=== PATIENT | male | born 1995 | race Caucasian/White ===

== ENCOUNTER 2017-06-03 08:22 | Emergency (ER) | payer SELFPAY ==
[2017-06-03 10:43] LABS: APPEARANCE,URINE CLEAR; BILIRUBIN,URINE NEGATIVE (NEGATIVE); GLUCOSE, URINE NEGATIVE (NEGATIVE); KETONES,URINE NEGATIVE (NEGATIVE); LEUKOCYTE ESTERASE,URINE NEGATIVE (NEGATIVE); NITRITE,URINE POSITIVE (NEGATIVE); PROTEIN,URINE NEGATIVE (NEGATIVE); URINE SPECIFIC GRAVITY 1.005
--- NOTE | 2017-06-03 11:00 | ER Document Report ---
ED GI/ - General Chief Complaint: Pain With Urination Stated Complaint: PAINFUL URINATION Time Seen by Provider: 06/03/17 08:46 Mode of Arrival: Ambulatory Information source: Patient Notes: Patient is a 21-year-old male who presents to the ER today for 3 days of burning with urination and frequency, hesitancy. Patient denies rash, fever, chills. Patient denies any abdominal pain or low back pain. He denies any concern for STDs. He denies any penile discharge. He denies that he seen any blood in his urine. TRAVEL OUTSIDE OF THE [place] IN LAST 30 DAYS: No - Related Data Allergies/Adverse Reactions: Penicillins Allergy (Verified 06/03/17 08:30) Past Medical History - General Information source: Patient - Social History Smoking Status: Unknown if Ever Smoked Patient has suicidal ideation: No Patient has homicidal ideation: No Renal/ Medical History: Denies: Hx Peritoneal Dialysis Surgical Hx: Negative Review of Systems - Review of Systems Constitutional: No symptoms reported EENT: No symptoms reported Cardiovascular: No symptoms reported Respiratory: No symptoms reported Gastrointestinal: No symptoms reported Genitourinary: See HPI Male Genitourinary: See HPI Musculoskeletal: No symptoms reported Skin: No symptoms reported Hematologic/Lymphatic: No symptoms reported Neurological/Psychological: No symptoms reported Physical Exam - Vital signs Vitals: Temp Pulse Resp BP Pulse Ox 98.2 F 117 H 17 143/90 H 96 06/03/17 08:24 06/03/17 08:24 06/03/17 08:24 06/03/17 08:24 06/03/17 08:24 - Notes Notes: PHYSICAL EXAMINATION: GENERAL: Well-appearing, obese, and in no acute distress. HEAD: Atraumatic, normocephalic. EYES: Pupils equal round and reactive to light, extraocular movements intact, sclera anicteric, conjunctiva are normal. NECK: Normal range of motion, supple without lymphadenopathy LUNGS: CTAB and equal. No wheezes rales or rhonchi. HEART: Regular rate and rhythm without murmurs ABDOMEN: Soft, no tenderness. No guarding, no rebound BACK: no vertebral tenderness, normal ROM GI/: no CVA tenderness EXTREMITIES: Normal range of motion, no pitting edema. No cyanosis. NEUROLOGICAL: Cranial nerves grossly intact. Normal sensory/motor exams. PSYCH: Normal mood, normal affect. SKIN: Warm, Dry, normal turgor, no rashes or lesions noted Course - Re-evaluation Re-evalutation: 06/03/17 13:47 urinalysis is positive for nitrites. Patient placed on Keflex. Gonorrhea and chlamydia negative today. - Vital Signs Vital signs: Temp Pulse Resp BP Pulse Ox 98.1 F 100 18 140/99 H 98 06/03/17 11:31 06/03/17 11:31 06/03/17 11:31 06/03/17 11:31 06/03/17 11:31 - Laboratory Laboratory results interpreted by me: 06/03/17 10:23 Urine Nitrite POSITIVE H Urine Urobilinogen 2.0 H Discharge - Discharge Clinical Impression: UTI (urinary tract infection) Qualifiers: Urinary tract infection type: site unspecified Hematuria presence: without hematuria Qualified Code(s): N39.0 - Urinary tract infection, site not specified Condition: Stable Disposition: HOME, SELF-CARE Instructions: Urinary Tract Infection ([facility]) Additional Instructions: Drink plenty of water! return immediately for any new or worsening symptoms. Follow up with primary care provider, call tomorrow to make followup appointment. Prescriptions: Cephalexin Monohydrate [Keflex 500 mg Capsule] 500 mg PO BID 7 Days #14 capsule Forms: Return to Work
[2017-06-03 11:32] VITALS: BP 140/99
[2017-06-03 12:03] LABS: CHLAM PCR NOT DETECTED (NOT DETECT)
== END 2017-06-03 11:32 | disposition home or self-care (01) ==
LOC: ER 08:22
DX: N39.0 Urinary tract infection, site not specified (principal); R30.9 Painful micturition, unspecified; R35.0 Frequency of micturition; R39.15 Urgency of urination
CPT/HCPCS: 81001; 87491; 87591; 99283

== ENCOUNTER 2017-06-24 08:14 | Emergency (ER) | payer SELFPAY ==
[2017-06-24 09:32] LABS: APPEARANCE,URINE CLEAR; BILIRUBIN,URINE NEGATIVE (NEGATIVE); GLUCOSE, URINE NEGATIVE (NEGATIVE); KETONES,URINE NEGATIVE (NEGATIVE); LEUKOCYTE ESTERASE,URINE NEGATIVE (NEGATIVE); NITRITE,URINE NEGATIVE (NEGATIVE); PROTEIN,URINE NEGATIVE (NEGATIVE); URINE SPECIFIC GRAVITY 1.021; UROBILINOGEN,URINE NEGATIVE mg/dL (<2.0)
[2017-06-24 09:48] LABS: ANION GAP 14 (5-19); BLOOD UREA NITROGEN 22 mg/dL (7-20); CALCIUM 9.8 mg/dL (8.4-10.2); CARBON DIOXIDE 28 mmol/L (22-30); CHLORIDE 102 mmol/L (98-107); CREATININE RESULT 0.87 mg/dL (0.52-1.25); GLUCOSE 95 mg/dL (75-110); POTASSIUM 4.5 mmol/L (3.6-5.0); SODIUM 143.6 mmol/L (137-145)
--- NOTE | 2017-06-24 10:06 | ER Document Report ---
ED GI/ - General Chief Complaint: Pain With Urination Stated Complaint: POSSIBLE UTI Time Seen by Provider: 06/24/17 08:35 Mode of Arrival: Ambulatory Information source: Patient, Relative Notes: Patient is a 22-year-old male comes emergency room coming by his mother. Patient states that he was seen here on June 03 for same presentation was sent home got a little better with antibiotics but then the discomfort returned. States he has discomfort with urination. Also states that it comes and goes. Patient denies being sexually active. Primary complaint though is dysuria. Patient has no other medical problems according to him and his mother. Also denies any fevers. No history of diabetes for him however his father whom he does not see it has a long history of diabetes at a young age as does his grandfather of his father..States thsat at times he has pain on trying to urinate and other times seems like he can not urinate at all. TRAVEL OUTSIDE OF THE [place] IN LAST 30 DAYS: No - HPI Patient complains to provider of: Dysuria, Urinary retention Onset: Other - 3 weeks Timing/Duration: Sudden, Intermittent, Waxing and waning Quality of pain: Burning, Cramping, Sharp Severity at maximum: Moderate Severity in ED: Moderate Pain Level: 2 Context: denies: Bad food, Lifting, Out of the country travel, , Recent trauma, Other Location: Suprapubic. No: Chest pain, Epigastric, LUQ, LLQ, RUQ, RLQ, Left flank, Right flank, Low back, Pelvis, Left testicle, Right testicle, Rectal, Other Sexual history: Inactive Associated symptoms: Urinary hesitancy, Urinary frequency, Urinary retention, Urinary urgency Exacerbated by: Denies Relieved by: Denies Similar symptoms previously: Yes Recently seen / treated by doctor: Yes - Related Data Allergies/Adverse Reactions: Penicillins Allergy (Verified 06/24/17 08:16) Past Medical History - General Information source: Patient, Relative - Social History Smoking Status: Current Every Day Smoker Cigarette use (# per day): Yes - 1ppd Chew tobacco use (# tins/day): No Smoking Education Provided: Yes Frequency of alcohol use: None Drug Abuse: None Lives with: Family Family History: Hypertension, Other - DM Patient has suicidal ideation: No Patient has homicidal ideation: No - Past Medical History Cardiac Medical History: Reports: None Denies: Hx Atrial Fibrillation, Hx Congestive Heart Failure, Hx Coronary Artery Disease, Hx DVT, Hx Heart Attack, Hx Hypercholesterolemia, Hx Hypertension, Hx Peripheral Vascular Disease, Hx Pulmonary Embolism, Hx Heart Murmur, Other Pulmonary Medical History: Reports: None EENT Medical History: Reports: None Neurological Medical History: Reports: None Endocrine Medical History: Reports: None Renal/ Medical History: Reports: None. Denies: Hx Peritoneal Dialysis Malignancy Medical History: Reports None GI Medical History: Reports: None. Denies: Hx Cirrhosis, Hx Crohn's Disease, Hx Diverticulitis, Hx Gastritis, Hx Gastroesophageal Reflux Disease, Hx Hepatitis, Hx Hiatal Hernia, Hx Irritable Bowel, Hx Liver Failure, Hx Pancreatitis, Hx Ulcer, Hx Ulcerative Colitis, Hx Colonoscopy, Hx Endoscopic Retrograde Cholangio, Hx Endoscopy, Other Skin Medical History: Reports None Psychiatric Medical History: Reports: None Traumatic Medical History: Reports: None Infectious Medical History: Reports: None Past Surgical History: Reports: None - Immunizations Immunizations up to date: Yes Review of Systems - Review of Systems Constitutional: No symptoms reported EENT: No symptoms reported Cardiovascular: No symptoms reported Respiratory: No symptoms reported Gastrointestinal: No symptoms reported Genitourinary: Burning, Dysuria, Frequency, Urgency, Retention. denies: No symptoms reported, See HPI, Discharge, Flank pain, Hematuria, Incontinence, Pain , Other Male Genitourinary: denies: No symptoms reported, See HPI, Erectile dysfunction , Testicular pain, Penile discharge, Other Musculoskeletal: No symptoms reported Skin: No symptoms reported Hematologic/Lymphatic: denies: No symptoms reported Neurological/Psychological: No symptoms reported -: Yes All other systems reviewed and negative Physical Exam - Vital signs Vitals: Temp Pulse Resp BP Pulse Ox 98.4 F 100 16 147/73 H 98 06/24/17 08:16 06/24/17 08:16 06/24/17 08:16 06/24/17 08:16 06/24/17 08:16 - General General appearance: Appears well - Respiratory Respiratory status: No respiratory distress Breath sounds: Normal. No: Decreased air movement, Nonproductive cough, Productive cough, Rales, Rhonchi, Stridor, Wheezing, Other - Cardiovascular Rhythm: Regular Heart sounds: Normal auscultation Murmur: No - Abdominal Inspection: Normal Distension: No distension Bowel sounds: Normal Tenderness: Nontender Organomegaly: No organomegaly - Genitourinary Inspection: Normal. No: Blood at meatus, Penile discharge, Other Tenderness: Nontender Cremasteric reflex: Normal Scrotum: Normal Notes: Exam shows a morbidly obese white male . Further examination of the male genitalia shows no acute findings. No testicular pain no scrotal swelling. No discharge from penis. Cremasteric reflex normal. no hernia. - Back Back: Normal, Nontender. No: Tender, Deformity/step-off, CVA tenderness, Vertebra tenderness, Scars, Scoliosis, Wounds, Other - Neurological Neuro grossly intact: Yes Cognition: Normal Orientation: AAOx4 [place] Coma Scale Eye Opening: Spontaneous [place] Coma Scale Verbal: Oriented [place] Coma Scale Motor: Obeys Commands [place] Coma Scale Total: 15 Speech: Normal Course - Vital Signs Vital signs: Temp Pulse Resp BP Pulse Ox 97.5 F 86 16 133/95 H 96 06/24/17 10:42 06/24/17 10:42 06/24/17 10:42 06/24/17 10:42 06/24/17 10:42 - Laboratory Result Diagrams: 06/24/17 09:17 Laboratory results interpreted by me: 06/24/17 09:17 BUN 22 H - Transfer of Care Notes: 06/24/17 22:51 No pain or tenderness noted on exam to testicles and or scrotal area. Epididymis nontender as well. No US needed. Question uretheral spasms vs mild stricture. Will refer to urologist. Mother knows which one she is going to see. Discharge - Discharge Clinical Impression: Cystitis, Urethral spasm Condition: Good Disposition: HOME, SELF-CARE Instructions: Urethritis ([facility]) Additional Instructions: Even though your urine is clearing to treat you for a cystitis/urethritis kind of presentation. We will treat with an antibiotic and also a antispasmodic. I am also encourage you to contact a urologist for follow-up. This may be something that requires more intervention. As we discussed could be spasms that are being caused and the Pyridium which on put you on we will stop the spasms. If he should spike a fever or have any other discomforts then increased return to ER for recheck. Again I highly recommend a urology consult. You may contact [facility]. Which is [facility] Prescriptions: Phenazopyridine HCl [Pyridium 200 mg Tablet] 200 mg PO TID #6 tablet Sulfamethoxazole/Trimethoprim [Bactrim Ds Tablet] 1 each PO BID #14 tablet Forms: Elevated Blood Pressure Referrals: JOSE VALERIO II, MD [[facility]] - Follow up as needed
[2017-06-24 10:44] VITALS: BP 133/95
== END 2017-06-24 10:43 | disposition home or self-care (01) ==
LOC: ER 08:14
DX: N30.90 Cystitis, unspecified without hematuria (principal); N35.9 Urethral stricture, unspecified; R30.9 Painful micturition, unspecified; F17.210 Nicotine dependence, cigarettes, uncomplicated
CPT/HCPCS: 36415; 80048; 81001; 87086; 99283

== ENCOUNTER 2020-08-13 23:15 | Emergency (ER) | payer SELFPAY ==
[2020-08-14] MEDS ORDERED: NORMAL SALINE 1000 ML 1,000 ML IV ONE (02:01)
[2020-08-14] MEDS ORDERED: CEFTRIAXONE 1 GM/D5W RTU 1 GM/50 ML RTUPB IV ONE (02:01)
--- NOTE | 2020-08-14 02:01 | ER Document Report ---
ED General - General Chief Complaint: RLE pain and SOB Stated Complaint: RIGHT LEG PAIN,BODY ACHES Time Seen by Provider: 08/14/20 01:24 Primary Care Provider: [facility] [Provider Group] - Follow up as needed [facility] [Provider Group] - Follow up as needed [facility] [Provider Group] - Follow up as needed [facility] [Provider Group] - Follow up as needed Mode of Arrival: Medic Information source: Patient Notes: 25-year-old male presented to ED for complaint of pain to the right lower leg and foot which is red and swollen body aches short of breath afebrile. He is 214 kg and 6 foot 4. He states he has not been to the doctor probably in at least a year. He is very short of breath when trying to get up and down out of the bed. EMS stated that there rapid Covid was negative but he is symptomatic for Covid. We will get x-ray Covid flu blood work and x-ray of the chest and foot. He does look like he has cellulitis to the right foot. He states he did accidentally dropped a knife sticking his toe about a week ago. That does not look infected but he does look like he has cellulitis to the foot. Constitutional: Negative for fever. HENT: Negative for sore throat. Eyes: Negative for visual changes. Cardiovascular: Negative for chest pain. Respiratory: Patient complains of shortness of breath body aches states he has a nonproductive cough has not had any fevers. Gastrointestinal: Negative for abdominal pain, vomiting or diarrhea. Genitourinary: Negative for dysuria. Musculoskeletal: Pain swelling and redness to the right foot and leg. Skin: Eczematous swollen right foot and leg with a very small healing wound to the right fifth toe it was from a couple days ago. There is no abscess or purulent drainage to the site. Neurological: Negative for headaches, weakness or numbness. 10 point ROS negative except as marked above and in HPI. Patient is severely morbidly obese at 214 kg and 6 foot 4 HEAD: Normal with no signs of head trauma. EYES: PERRLA, EOMI, conjunctiva normal, no discharge. EARS: Hearing grossly intact. NOSE: Normal. THROAT: Oropharynx is normal. NECK: Normal range of motion, no tenderness, supple, no lymphadenopathy, No adenopathy, no JVD. CHEST: Clear breath sounds bilaterally. No wheezes, rales, or rhonchi. CARDIAC: Pulse was tachycardic when he first came in he was treated with IV fluids and his pulse came down to 110. It was 138 to begin with. He stated he felt much better and more steady on his feet VASCULAR: Mild erythema and edema to the right lower leg and foot from cellulitis. Peripheral pulses normal and equal in all extremities. ABDOMEN: Normal and soft with no tenderness, no masses or pulsatile masses. GASTROINTESTINAL: Bowel sounds normal GENITOURINARY: Normal, No tenderness LYMPATHTIC: No lymphadenopathy noted. MUSCULOSKELETAL: Good range of motion of all major joints. Extremities without clubbing, cyanosis or edema. NEUROLOGICAL: Alert and oriented x 3. No focal sensory or strength deficits. Speech normal. Follows commands appropriately. PSYCHIATRIC: Normal Affect, judgement and mood. SKIN: Erythematous warm area to the lower right leg and foot. He does have a small wound to the right fifth toe that he states was from several days ago when he dropped a knife on his foot. There is no purulent drainage to this toe. TRAVEL OUTSIDE OF THE [place] IN LAST 30 DAYS: No - HPI Onset: Yesterday Onset/Duration: Gradual Quality of pain: Achy - Body aches painful right leg Severity: Moderate Pain Level: 4 Associated symptoms: Body/muscle aches, Nonproductive cough, Shortness of breath, Other - And swelling right foot and leg Exacerbated by: Movement, Walking Relieved by: Denies Similar symptoms previously: No Recently seen / treated by doctor: No - Related Data Allergies/Adverse Reactions: Penicillins Allergy (Verified 06/24/17 08:16) Past Medical History - General Information source: Patient - Social History Smoking Status: Current Every Day Smoker Cigarette use (# per day): Yes - 5 cigarillos a week Smoking Education Provided: Yes - 3 minutes Frequency of alcohol use: None Drug Abuse: None Lives with: Family Family History: Hypertension, Other - Past Medical History Cardiac Medical History: Reports: None Pulmonary Medical History: Reports: None EENT Medical History: Reports: None Neurological Medical History: Reports: None Endocrine Medical History: Reports: None Renal/ Medical History: Reports: None. Denies: Hx Peritoneal Dialysis Malignancy Medical History: Reports None GI Medical History: Reports: None Musculoskeletal Medical History: Reports None Skin Medical History: Reports Hx Cellulitis Psychiatric Medical History: Reports: None Traumatic Medical History: Reports: None Infectious Medical History: Reports: None - Immunizations Immunizations up to date: Yes Hx Diphtheria, Pertussis, Tetanus Vaccination: Yes - 08/14/2020 Physical Exam - Vital signs Vitals: Temp Pulse Resp BP Pulse Ox 99.2 F 138 H 22 H 134/90 H 100 08/13/20 23:28 08/13/20 23:28 08/13/20 23:28 08/13/20 23:28 08/13/20 23:28 Course - Re-evaluation Re-evalutation: 08/14/20 09:06 X-ray results discussed with Dr. Ramires as well as exam. He did recommend treatment with Rocephin IV and discharged home with Keflex. Patient was instructed to follow-up with primary care and was given a list of several offices to follow-up with. He was instructed please to ensure that he cleaned the foot 3 times a day with soap water and please follow-up with For any increase in symptoms. Patient did verbalize understanding and agreement with this treatment plan. - Vital Signs Vital signs: Temp Pulse Resp BP Pulse Ox 100.7 F H 122 H 18 133/74 H 99 08/14/20 04:36 08/14/20 04:36 08/14/20 04:36 08/14/20 04:36 08/14/20 04:36 - Laboratory Results Result Diagrams: 08/14/20 02:45 08/14/20 02:45 Laboratory Results Interpreted: 08/14/20 08/14/20 02:45 02:45 WBC 16.0 H Hgb 12.8 L Lymph % (Auto) 5.5 L Absolute Neuts (auto) 13.8 H Seg Neutrophils % 86.2 H Chloride 108 H BUN 22 H Glucose 116 H Critical Laboratory Results Reviewed: No Critical Results - Radiology Results Critical Radiology Results Reviewed: No Critical Results Discharge - Discharge Clinical Impression: Cellulitis of right foot, Person under investigation for COVID-19 Condition: Stable Disposition: HOME, SELF-CARE Instructions: COVID-19 Guidance for Persons Under Investigation Additional Instructions: CELLULITIS: You have an infection of your skin and underlying soft tissues called cellulitis. This is due to bacteria, which can enter through any break in the skin, or even through an irritated hair follicle. Untreated, cellulitis will usually worsen. Antibiotics are required. Usually, warm packs or warm soaks, and elevation of the infected area are recommended. You should start getting better within 24 to 36 hours. Most infections respond quickly to the right medication. Follow-up care is important, however, to check for abscess (boil) formation, unsuspected foreign body, or resistant infection. If you develop fever, chills, or if the area of infection is becoming rapidly more swollen or painful, call the doctor at once. Rocephin You have been given an injection of an antibiotic called Rocephin (ceftriaxone). Sometimes the injection must be combined with antibiotic pills. For some infections, such as an uncomplicated ear infection, Rocephin provides all the antibiotic that's needed. The antibiotic will be in your body for about two days. For serious infections, we usually repeat doses of Rocephin daily. Side effects are very unusual following a shot. Women may develop vaginal yeast infections, and babies can get yeast (thrush) in the mouth following the use of antibiotics. Contact your physician if you have symptoms with this medication. Allergy to this antibiotic can result in hives, wheezing, faintness, or itching. If symptoms of allergy occur, call the doctor at once. Cephalexin The antibiotic you've been prescribed is a member of the cephalosporin class. This type of antibiotic covers a wide variety of infections, including those of the skin, lungs, and urinary tract. It's useful for staph infections. This antibiotic is slightly similar to the penicillin family. In rare cases, a person who is allergic to penicillin will also be allergic to this medication. If you have had a severe allergic reaction to penicillin, and have not taken this antibiotic since that time, notify your doctor. Antibiotics which cover many germs ("broad spectrum" antibiotics) are more likely to cause diarrhea or "yeast" infections. Women prone to vaginal yeast problems may suffer an attack after taking this antibiotic. In infants, oral thrush (white spots "stuck" on the cheek) or yeast diaper rash may result. See your doctor if these problems occur. Call at once if you develop itching, hives, shortness of breath, or lightheadedness. Intravenous (IV) Fluids As part of your care today, you received intravenous (IV) fluids. IV f luids are administered to patients who are dehydrated or to those who have certain chemical (electrolyte) abnormalities that need correcting. Patient was provided with discharge information including: As a person under investigation for Covid 19, the [place] department of Health and Human Services, division of public health advises you to adhere to the following guidance until your test results are reported to you. If your test result is positive, you will receive additional information from your provider and your local health department at that time. Remain at home until you are cleared by the health provider or public health authorities. Keep a log of visitors to your home, notify any visitors to your home of your isolation status. If you plan to move to a new address or leave the county, notify the local health department in your County. Call your doctor or seek care if you have an urgent medical need. Before seeking medical care, call ahead to get instructions from the provider before arriving at the medical office clinic or hospital. Notify them that you are being tested for the virus that causes Covid 19 so that arrangements can be made, as necessary, to prevent transmission to others in the healthcare setting. Next, notify the local health department in your county. If a medical emergency arises and you need to call 911, inform the first responders that you are being tested for the virus that causes Covid 19. Next, notify the local health department in your county. Prescriptions: Cephalexin Monohydrate [Keflex 500 mg Capsule] 500 mg PO Q6H 5 Days #20 capsule Referrals: [facility] [Provider Group] - Follow up as needed [facility] [Provider Group] - Follow up as needed [facility] [Provider Group] - Follow up as needed [facility] [Provider Group] - Follow up as needed
[2020-08-14] MEDS ORDERED: DIPH/PERTUSS(ACELL)/TETANUS VAC/PF 0.5 ML SYR (>=10YO) IM ONE (02:03)
[2020-08-14 03:06] LABS: ABSOLUTE LYMPHOCYTES (AUTO) 0.9 10^3/uL (0.5-4.7); ABSOLUTE MONOCYTES (AUTO) 1.3 10^3/uL (0.1-1.4); ABSOLUTE NEUT (AUTO) 13.8 10^3/uL (1.7-8.2); BASOPHILS % (AUTO) 0.3 % (0-2); EOSINOPHILS % (AUTO) 0.1 % (0-6); HEMATOCRIT 37.9 % (37.9-51.0); HEMOGLOBIN 12.8 g/dL (13.5-17.0); LYMPHOCYTES % (AUTO) 5.5 % (13-45); MEAN CORPUSCULAR HEMOGLOBIN 27.2 pg (27.0-33.4); MEAN CORPUSCULAR HGB CONC 33.8 g/dL (32.0-36.0); MEAN CORPUSCULAR VOLUME 80 fl (80-97); MONOCYTES % (AUTO) 7.9 % (3-13); PLATELET COUNT 223 10^3/uL (150-450); RED BLOOD COUNT 4.71 10^6/uL (4.35-5.55); RED CELL DISTRIBUTION WIDTH 13.2 % (11.5-14.0); SEGMENTED NEUTROPHILS % (AUTO) 86.2 % (42-78); TOTAL CELLS COUNTED % (AUTO) 100 %
[2020-08-14 03:20] LABS: ALBUMIN 3.9 g/dL (3.5-5.0); ALKALINE PHOSPHATASE 66 U/L (38-126); ANION GAP 8 (5-19); ASPARTATE AMINO TRANSFERASE 21 U/L (17-59); BILIRUBIN,DIRECT 0.3 mg/dL (0.0-0.4); BILIRUBIN,TOTAL 0.4 mg/dL (0.2-1.3); BLOOD UREA NITROGEN 22 mg/dL (7-20); CARBON DIOXIDE 25 mmol/L (22-30); CHLORIDE 108 mmol/L (98-107); GLUCOSE 116 mg/dL (75-110); POTASSIUM 4.2 mmol/L (3.6-5.0); TOTAL PROTEIN 6.9 g/dL (6.3-8.2)
[2020-08-14 03:28] LABS: A TYPE INFLUENZA AG NEGATIVE (NEGATIVE); B INFLUENZA AG NEGATIVE (NEGATIVE)
--- NOTE | 2020-08-14 03:31 | RADIOLOGY REPORT (SQ) ---
EXAM DESCRIPTION: XR FOOT 3 OR MORE VIEWS COMPLETED DATE/TME: 08/14/2020 02:36 CLINICAL HISTORY: 25 years, Male, right foot swelling red pain COMPARISON: None. NUMBER OF VIEWS: 3 TECHNIQUE: 3 view right foot LIMITATIONS: None. FINDINGS: Diffuse soft tissue swelling of the foot and ankle. No acute fracture. No soft tissue gas IMPRESSION: Nonspecific diffuse soft tissue swelling copyright 2010 [facility]- All Rights Reserved
--- NOTE | 2020-08-14 03:32 | RADIOLOGY REPORT (SQ) ---
EXAM DESCRIPTION: XR CHEST 1 VIEW COMPLETED DATE/TME: 08/14/2020 02:36 CLINICAL HISTORY: 25 years, Male, short of breath COMPARISON: None. NUMBER OF VIEWS: 1 TECHNIQUE: Portable chest LIMITATIONS: None. FINDINGS: Heart size normal. Lungs clear. No pneumothorax IMPRESSION: Negative chest copyright 2011 [employer]- All Rights Reserved
[2020-08-14 04:38] VITALS: BP 133/74
== END 2020-08-14 04:42 | disposition home or self-care (01) ==
LOC: ER 23:15
DX: L03.115 Cellulitis of right lower limb (principal); M79.604 Pain in right leg; R06.02 Shortness of breath; M79.10 Myalgia, unspecified site; M79.671 Pain in right foot; E66.01 Morbid (severe) obesity due to excess calories; R00.0 Tachycardia, unspecified; R60.0 Localized edema; Z20.828 Contact with and (suspected) exposure to other viral communicable diseases; F17.210 Nicotine dependence, cigarettes, uncomplicated; Z88.0 Allergy status to penicillin
CPT/HCPCS: 99284; 90471; 96365; 36415; 85025; 87635; 80053; 87804; 71045; 73630; 90715; J7030; J0696; C9803

== ENCOUNTER 2020-08-31 11:46 | Emergency (ER) | payer SELFPAY ==
--- NOTE | 2020-08-31 12:18 | ER Document Report ---
ED Medical Screen (RME) - General Chief Complaint: Skin Problem Stated Complaint: RIGHT LEG PAIN/OPEN SORES Time Seen by Provider: 08/31/20 12:06 Notes: Patient presents complaining of worsening cellulitis to right lower extremity. Patient was treated for cellulitis on August 13. Patient states he has been off the medications for the past week. Patient denies any fever, chest pain or shortness of breath. Patient denies any history of DVT. I have greeted and performed a rapid initial assessment of this patient. A comprehensive ED assessment and evaluation of the patient, analysis of test results and completion of the medical decision making process will be conducted by additional ED providers. TRAVEL OUTSIDE OF THE [place] IN LAST 30 DAYS: No - Related Data Allergies/Adverse Reactions: Penicillins Allergy (Verified 06/24/17 08:16) Past Medical History - Past Medical History Cardiac Medical History: Denies: Hx Atrial Fibrillation, Hx Congestive Heart Failure, Hx Coronary Artery Disease, Hx DVT, Hx Heart Attack, Hx Hypercholesterolemia, Hx Hypertension, Hx Peripheral Vascular Disease, Hx Pulmonary Embolism, Hx Heart Murmur Renal/ Medical History: Denies: Hx Peritoneal Dialysis GI Medical History: Denies: Hx Cirrhosis, Hx Crohn's Disease, Hx Diverticulitis, Hx Gastritis, Hx Gastroesophageal Reflux Disease, Hx Hepatitis, Hx Hiatal Hernia, Hx Irritable Bowel, Hx Liver Failure, Hx Pancreatitis, Hx Ulcer, Hx Ulcerative Colitis, Hx Colonoscopy, Hx Endoscopic Retrograde Cholangio, Hx Endoscopy Skin Medical History: Reports Hx Cellulitis Infectious Medical History: Denies: Hx Hepatitis - Immunizations Immunizations up to date: Yes Hx Diphtheria, Pertussis, Tetanus Vaccination: Yes - 08/14/2020 Physical Exam - Vital signs Vitals: Temp Pulse Resp BP Pulse Ox 98.8 F 102 H 16 154/74 H 100 08/31/20 11:54 08/31/20 11:54 08/31/20 11:54 08/31/20 11:54 08/31/20 11:54 - General Notes: Swelling and erythema to distal right lower extremity Course - Vital Signs Vital signs: Temp Pulse Resp BP Pulse Ox 98.8 F 102 H 16 154/74 H 100 08/31/20 11:54 08/31/20 11:54 08/31/20 11:54 08/31/20 11:54 08/31/20 11:54
[2020-08-31 13:03] LABS: ABSOLUTE EOSINOPHILS # (AUTO) 0.1 10^3/uL (0.0-0.6); ABSOLUTE LYMPHOCYTES (AUTO) 1.9 10^3/uL (0.5-4.7); ABSOLUTE MONOCYTES (AUTO) 0.7 10^3/uL (0.1-1.4); ABSOLUTE NEUT (AUTO) 3.6 10^3/uL (1.7-8.2); BASOPHILS % (AUTO) 0.5 % (0-2); EOSINOPHILS % (AUTO) 2.1 % (0-6); HEMATOCRIT 40.2 % (37.9-51.0); HEMOGLOBIN 13.7 g/dL (13.5-17.0); LYMPHOCYTES % (AUTO) 30.4 % (13-45); MEAN CORPUSCULAR HEMOGLOBIN 26.9 pg (27.0-33.4); MEAN CORPUSCULAR VOLUME 79 fl (80-97); MONOCYTES % (AUTO) 10.3 % (3-13); PLATELET COUNT 303 10^3/uL (150-450); RED BLOOD COUNT 5.09 10^6/uL (4.35-5.55); RED CELL DISTRIBUTION WIDTH 13.1 % (11.5-14.0); SEGMENTED NEUTROPHILS % (AUTO) 56.7 % (42-78); TOTAL CELLS COUNTED % (AUTO) 100 %; WHITE BLOOD COUNT 6.4 10^3/uL (4.0-10.5)
[2020-08-31 13:11] LABS: ANION GAP 10 (5-19); BLOOD UREA NITROGEN 10 mg/dL (7-20); CALCIUM 9.6 mg/dL (8.4-10.2); CARBON DIOXIDE 30 mmol/L (22-30); CHLORIDE 102 mmol/L (98-107); GLUCOSE 112 mg/dL (75-110); POTASSIUM 4.2 mmol/L (3.6-5.0)
[2020-08-31] MEDS ORDERED: SULFAMETHOXAZOLE/TRIMETHOPRIM 800-160 MG TABLET PO ONE (14:02)
[2020-08-31] MEDS ORDERED: CEPHALEXIN 500 MG CAPSULE PO ONE (14:02)
--- NOTE | 2020-08-31 14:02 | ER Document Report ---
ED Extremity Problem, Lower - General Chief Complaint: Skin Problem Stated Complaint: RIGHT LEG PAIN/OPEN SORES Time Seen by Provider: 08/31/20 12:06 Notes: CHIEF COMPLAINT: Recurrent right lower leg redness HPI: 25-year-old morbidly obese male presenting for recurrent right lower leg redness. Patient states he was seen 3 weeks ago for cellulitis of the right lower leg which resolved with Keflex. Patient states about a week ago he began having increasing redness over the anterior right lower leg. States he tried to find a primary care provider to see him but with Covid he was not able to get into see anyone. No fever. ROS: See HPI - all other systems were reviewed and are otherwise negative Constitutional: no fever Integumentary: + rash Allergy: no hives Musculoskeletal: + extremity pain or swelling Neurological: no numbness/tingling, no weakness MEDICATIONS: I agree with the patient medications as charted by the RN. ALLERGIES: I agree with the allergies as charted by the RN. PAST MEDICAL HISTORY/PAST SURGICAL HISTORY: Reviewed and agree as charted by RN. SOCIAL HISTORY: Reviewed and agree as charted by RN. FAMILY HISTORY: No significant familial comorbid conditions directly related to patient complaint EXAM: Reviewed vital signs as charted by RN. CONSTITUTIONAL: Alert and oriented and responds appropriately to questions. Well-appearing; well-nourished HEAD: Normocephalic; atraumatic EYES: Conjunctivae clear, sclerae non-icteric ENT: normal nose; no rhinorrhea; moist mucous membranes NECK: Supple without meningismus CARD: symmetric distal pulses RESP: Normal chest excursion without splinting or tachypnea ABD/GI: non-distended BACK: The back appears normal EXT: Normal ROM in all joints; no cyanosis, no effusions, no edema SKIN: Normal color for age and race; warm; dry; good turgor; there is redness over the anterior lower leg extending into area of about 8 cm x 8 cm with no induration or fluctuance. No posterior calf pain or swelling. NEURO: Moves all extremities equally; Motor and sensory function intact PSYCH: The patient's mood and manner are appropriate. Grooming and personal hygi ac are appropriate. MDM: 25-year-old male with cellulitis again of the right lower extremity. His lab work today ordered via the triage process is nonacute. Will place on Keflex and Bactrim for MRSA coverage. Will refer to primary care for follow-up TRAVEL OUTSIDE OF THE [place] IN LAST 30 DAYS: No - Related Data Allergies/Adverse Reactions: Penicillins Allergy (Verified 06/24/17 08:16) Past Medical History - Social History Smoking Status: Unknown if Ever Smoked Family History: Hypertension, Other - Past Medical History Cardiac Medical History: Denies: Hx Atrial Fibrillation, Hx Congestive Heart Failure, Hx Coronary Artery Disease, Hx DVT, Hx Heart Attack, Hx Hypercholesterolemia, Hx Hypertension, Hx Peripheral Vascular Disease, Hx Pulmonary Embolism, Hx Heart Murmur Renal/ Medical History: Denies: Hx Peritoneal Dialysis GI Medical History: Denies: Hx Cirrhosis, Hx Crohn's Disease, Hx Diverticulitis, Hx Gastritis, Hx Gastroesophageal Reflux Disease, Hx Hepatitis, Hx Hiatal Hernia, Hx Irritable Bowel, Hx Liver Failure, Hx Pancreatitis, Hx Ulcer, Hx Ulcerative Colitis, Hx Colonoscopy, Hx Endoscopic Retrograde Cholangio, Hx En doscopy Skin Medical History: Reports Hx Cellulitis Infectious Medical History: Denies: Hx Hepatitis - Immunizations Immunizations up to date: Yes Hx Diphtheria, Pertussis, Tetanus Vaccination: Yes - 08/14/2020 Physical Exam - Vital signs Vitals: Temp Pulse Resp BP Pulse Ox 98.8 F 102 H 16 154/74 H 100 08/31/20 11:54 08/31/20 11:54 08/31/20 11:54 08/31/20 11:54 08/31/20 11:54 Course - Vital Signs Vital signs: Temp Pulse Resp BP Pulse Ox 98.8 F 102 H 16 154/74 H 100 08/31/20 11:54 08/31/20 11:54 08/31/20 11:54 08/31/20 11:54 08/31/20 11:54 - Laboratory Results Result Diagrams: 08/31/20 12:20 08/31/20 12:20 Laboratory Results Interpreted: 08/31/20 08/31/20 12:20 12:20 MCV 79 L MCH 26.9 L Glucose 112 H Critical Laboratory Results Reviewed: No Critical Results - Radiology Results Critical Radiology Results Reviewed: No Critical Results Discharge - Discharge Clinical Impression: Cellulitis of leg, right Condition: Stable Disposition: HOME, SELF-CARE Instructions: Cellulitis ([facility]) Additional Instructions: Take the antibiotics as prescribed. Follow-up with primary care for further evaluation and treatment call for appointment. Return for onset of fever or worsening redness or swelling of the leg Prescriptions: Sulfamethoxazole/Trimethoprim [Bactrim Ds Tablet] 2 tab PO BID #28 tablet Cephalexin Monohydrate [Keflex 500 mg Capsule] 500 mg PO Q6H 7 Days #28 capsule Referrals: [facility] [Provider Group] - Follow up as needed
[2020-08-31 15:04] VITALS: BP 156/84
== END 2020-08-31 15:03 | disposition home or self-care (01) ==
LOC: ER 11:46
DX: L03.115 Cellulitis of right lower limb (principal); Z88.0 Allergy status to penicillin
CPT/HCPCS: 36415; 80048; 85025; 99283